=== PATIENT | male | born 1955 | race Caucasian/White ===

== ENCOUNTER 2021-10-19 15:01 | Emergency (ER) | payer BC, OTHER ==
[~2021-10-19] VITALS: Ht 188 cm; Wt 86.2 kg
--- NOTE | 2021-10-19 15:20 | NUR ---
BIBS C/O ABDOMINAL PAIN X2 DAYS, PAIN STARTED UPPER ABDOMEN AND MOVED TO LLQ, PAIN IS 4/10 ON PAIN SCALE. AMBULATORY, PLACED ON BED, AAOX4, BREATHING EVEN AND UNLABORED.
[2021-10-19] MEDS ORDERED: ACETAMINOPHEN ES 500 MG TABLET PO ONE (16:00)
--- NOTE | 2021-10-19 16:00 | NUR ---
QUALITY ASSURANCE CALIBRATOR AT BED SIDE
[2021-10-19 16:12] LABS: BASOPHILS % (AUTO) 0.3 % (0.0-2.0); EOSINOPHILS % (AUTO) 1.6 % (0.0-6.0); HEMATOCRIT 37 % (39-51); HEMOGLOBIN 11.8 g/dL (13.5-17.5); LYMPHOCYTES # (AUTO) 1.5 K/uL (0.8-4.8); LYMPHOCYTES % (AUTO) 15.2 % (20.0-44.0); MEAN CORPUSCULAR HGB CONC 32 g/dl (31.0-36.0); MEAN CORPUSCULAR VOLUME 76 fL (80-96); MONOCYTES # (AUTO) 0.9 K/uL (0.1-1.30); MONOCYTES % (AUTO) 9.3 % (2.0-12.0); NEUTROPHILS % (AUTO) 73.6 % (43.0-81.0); PLATELET COUNT (AUTO) 259 K/uL (150-450); RED BLOOD CELL COUNT(AUTO) 4.89 MIL/uL (4.5-6.0); WHITE BLOOD COUNT (AUTO) 9.5 K/uL (4.3-11.0)
[2021-10-19] MEDS ORDERED: ACETAMINOPHEN ES 500 MG TABLET ONE (16:20)
[2021-10-19 16:30] LABS: ALBUMIN 3.3 g/dL (3.4-5.0); BILIRUBIN,DIRECT 0.1 mg/dL (0.0-0.2); BILIRUBIN,TOTAL 0.5 mg/dL (0.2-1.0); CALCIUM, SERUM 8.9 mg/dL (8.5-10.1); CREATININE 1.1 mg/dL (0.6-1.3); POTASSIUM 3.8 mmol/L (3.5-5.1); TOTAL PROTEIN, SERUM 7.2 g/dL (6.4-8.2)
--- NOTE | 2021-10-19 16:32 | NUR ---
URINE SAMPLE SENT TO LAB
[2021-10-19] MEDS ORDERED: IOHEXOL-300 100 ML VIAL IV ONE (16:41)
--- NOTE | 2021-10-19 16:55 | NUR ---
IV LINE ESTABLISHED ON LAC #20
--- NOTE | 2021-10-19 16:58 | NUR ---
PT TAKEN TO RADIOLOGY FOR CT
--- NOTE | 2021-10-19 17:12 | NUR ---
PT BACK FROM RADIOLOGY
[2021-10-19 17:56] LABS: BILIRUBIN,URINE SMALL (NEGATIVE); COLOR,URINE YELLOW (YELLOW); LEUKOCYTE ESTERASE ,URINE NEGATIVE (NEGATIVE); NITRITE, URINE NEGATIVE (NEGATIVE); PROTEIN,URINE NEGATIVE (NEGATIVE); UGLUCOSE 250 MG/DL mg/dL (NEGATIVE)
[2021-10-19 18:02] LABS: BACTERIA,URINE None seen /HPF (None Seen); MUCUS,URINE Moderate /LPF (None Seen); RBC,URINE 0-2 /HPF (0-2); WBC,URINE 0-2 /HPF (0-3)
[2021-10-19] MEDS ORDERED: AMOX-430 PO (18:21)
[2021-10-19 19:27] VITALS: BP 125/80
--- NOTE | 2021-10-19 19:27 | NUR ---
IV removed. Catheter intact and site benign. Pressure and 4x4 applied to site. No bleeding noted.Patient discharged to home in stable condition. Written and verbal after care instructions given. Patient verbalizes understanding of instruction.
== END 2021-10-19 19:25 | disposition home or self-care (01) ==
LOC: ER 15:13
DX: K57.32 Diverticulitis of large intestine without perforation or abscess without bleeding (principal)
CPT/HCPCS: 99285; 74177; 85025; 80048; 83690; 80076; 81001; 36415; Q9967